=== PATIENT | female | born 1995 | race Caucasian/White ===

== ENCOUNTER 2017-02-18 12:19 | Emergency (ER) | payer MEDICAID, OTHER ==
[~2017-02-18] VITALS: Ht 167.6 cm; Wt 100.0 kg
[~2017-02-18 12:19] MED LIST: METR-1 PO
[2017-02-18 12:21] VITALS: BP 130/76; PULSE 76; RESP 16; TEMP 98.3; O2SAT 98
--- NOTE | 2017-02-18 12:35 | PD ---
Physical Exam Date Seen by Provider: Feb 18, 2017 Time Seen by Provider: 12:32 Data Data Last Documented VS Vital Signs Date Time Temp Pulse Resp B/P Pulse Ox O2 Delivery O2 Flow Rate FiO2 02/18/17 12:21 98.3 76 16 130/76 98 Room Air [facility] Supervised Visit with [facility]: No Narrative Course 21 YO F with complaint of back pain since age 18. 5/10 pinching sensation, shooting down the left leg today. Treating with ibuprofen with no relief. Vitals reviewed. Awaiting bed placement. Nissa Cain Feb 18, 2017 12:35
[2017-02-18] MEDS ORDERED: ROBA500T PO (13:08)
[2017-02-18] MEDS ORDERED: IBUP800T23 PO (13:08)
--- NOTE | 2017-02-18 13:08 | PD ---
HPI Chief Complaint: Back/ Neck Pain or Injury Time Seen by Provider: 13:06 Travel History International Travel<30 days: No Contact w/Intl Traveler<30days: No Traveled to known affect area: No History of Present Illness HPI 21-year-old female presents emergency Department with complaint of chronic low back pain 3 years now with radiation of pain down the left leg 3 months. History of right-sided sciatica. Chronic low back pain is from history of herniated L4. Denies new or recent injury. Denies encopresis, incontinence, saddle anesthesias. Denies paresthesias, loss of sensation, decreased range of motion, decreased strength bilateral lower extremities. Patient is ambulatory with normal gait. Denies IV drug use or cancer. Denies fever, vomiting, abdominal pain, dysuria. Has been taking 800 mg ibuprofen with minimal relief symptoms. Primary care provider is Dr. Meza and she has been following up and is being referred for outpatient MRI for further evaluation by either Ortho or neuro. Allergies to Bactrim and steroids. Has no other medical complaints. No other modifying factors or associated signs and symptoms. PFSH Past Medical History Diminished Hearing: No ?: Not LMP: 02/16/17 : 0 Para: 0 Miscarriage: 0 : 0 Social History Alcohol Use: No Tobacco Use: No Substance Use: No Allergies-Medications (Allergen,Severity, Reaction): Coded Allergies: Bactrim (Verified Allergy, Intermediate, Hives, 02/18/17) Uncoded Allergies: STERIODS (Allergy, Intermediate, Hives, 08/23/15) Reported Meds & Prescriptions Reported Meds & Active Scripts Active Ibuprofen 800 Mg Tab 800 Mg PO Q6HR PRN Robaxin (Methocarbamol) 500 Mg Tab 500 Mg PO QID PRN Flagyl (Metronidazole) 500 Mg Tab 500 Mg PO BID Review of Systems Except as stated in HPI: all other systems reviewed are Neg Physical Exam Narrative GENERAL: Well-nourished, well-developed female patient, in no acute distress; afebrile, nontoxic-appearing SKIN: Warm and dry. HEAD: Atraumatic. Normocephalic. EYES: Pupils equal and round. No scleral icterus. No injection or drainage. ENT: Mucosa pink and moist. Airway patent. NECK: Trachea midline. CARDIOVASCULAR: Regular rate. RESPIRATORY: No accessory muscle use. GASTROINTESTINAL: Rounded. MUSCULOSKELETAL: Bilateral lower extremities supple and non-tense with 2+ pedal pulses and sensory intact; with full range of motion and 5/5 strength. 2 + DTRs bilaterally. Active dorsiflexion and extension of bilateral feet. Bilateral straight leg raise is negative for low back pain. Ambulatory in room with normal gait. Sitting up in bed at 90. No obvious deformities. No clubbing. No cyanosis. No edema. BACK: No midline point tenderness on palpation of the lumbar spine. Tenderness on palpation of left lumbar iliosacral area. No obvious deformities. NEUROLOGICAL: Awake and alert. Oriented 3. No obvious cranial nerve deficits. Motor grossly within normal limits. Normal speech. Moves all extremities. 5/5 strength to all extremities. Sensory intact. PSYCHIATRIC: Appropriate mood and affect; insight and judgment normal. Data Data Last Documented VS Vital Signs Date Time Temp Pulse Resp B/P Pulse Ox O2 Delivery O2 Flow Rate FiO2 02/18/17 12:21 98.3 76 16 130/76 98 Room Air MDM Medical Decision Making Medical Screen Exam Complete: Yes Emergency Medical Condition: Yes Medical Record Reviewed: Yes Differential Diagnosis Chronic low back pain, sciatica, lumbar radiculopathy Narrative Course 21-year-old female with chronic low back pain with left-sided sciatica. Denies new or recent injury. Denies encopresis, incontinence, saddle and STDs. Patient is ambulatory in the room with normal gait. No midline point tenderness on palpation of the lumbar spine. Has outpatient follow-up with Dr. Meza, primary care provider. Toradol and Norflex administered in the ER. Ibuprofen and Robaxin prescribed for home. Patient verbalizes understanding and agreement with treatment plan. Patient is medically cleared and stable for discharge. Discussed reasons to return to the emergency department. Instructed patient to follow up with primary care provider. Patient agrees with treatment plan. The patients vital signs are stable and the patient is stable for outpatient follow-up and treatment. Patient discharged home, stable and in no acute distress. Diagnosis Primary Impression: Low back pain with left-sided sciatica Qualified Code: M54.42 - Low back pain with left-sided sciatica, unspecified back pain laterality, unspecified chronicity Referrals: Primary Care Physician Patient Instructions: Acute Low Back Pain (ED), General Instructions, Sciatica (ED) Departure Forms: Tests/Procedures, Work Release Enter return to work date: Feb 19, 2017 Additional Instructions: Tylenol or ibuprofen as directed and as needed for pain Robaxin as prescribed and as needed for muscle spasms Heating pad and/or ice to affected area to reduce pain Avoid aggravating activities; increase activity as tolerated Follow-up with primary care provider Return to emergency department immediately with worsening of symptoms Med/Other Pt SpecificInfo: Prescription(s) given Scripts Ibuprofen 800 Mg [id number] Mg PO Q6HR PRN (PAIN) #30 TAB Ref 0 Prov:Leticia Sullivan 02/18/17 Methocarbamol (Robaxin)500 Mg [id number] Mg PO QID PRN (MUSCLE SPASM) #30 TAB Ref 0 Prov:Leticia Sullivan 02/18/17 Disposition: 01 DISCHARGE HOME Condition: Stable Leticia Sullivan Feb 18, 2017 13:08
[2017-02-18] MEDS ORDERED: ORPHENADRINE INJ 60 MG/2 ML AMP IM ONE (13:15)
[2017-02-18] MEDS ORDERED: KETOROLAC TROMETHAMINE 60 MG/2 ML (IM) VIAL IM ONE (13:15)
== END 2017-02-18 14:08 | disposition home or self-care (01) ==
LOC: NEPK 12:19
DX: M54.42 Lumbago with sciatica, left side (principal)
CPT/HCPCS: 96372; 99284; J1885; J2360